=== PATIENT | male | born 1950 | race Caucasian/White ===

== ENCOUNTER 2017-07-30 07:41 | Day surgery (SDC) | payer MEDICARE ==
[2017-04-15 13:32] VITALS: BMI 24.3
[2017-07-30] MEDS ORDERED: Lactated Ringer's 1,000 ML IV ONE (08:06)
[2017-07-30 08:41] VITALS: O2SAT 99
[2017-07-30] MEDS ORDERED: Propofol 10 mg/ml Inj (20 ML) ONE (09:28)
[2017-07-30] MEDS ORDERED: Lidocaine 2% MPF (5 ml) Inj ONE (09:28)
[2017-07-30] MEDS ORDERED: Glucagon Recombinant 1 mg Inj ONE (10:20)
[2017-07-30 10:44] VITALS: TEMP 97
[2017-07-30 12:11] VITALS: BP 129/76; PULSE 81; RESP 15
== END 2017-07-30 11:03 | disposition home or self-care (01) ==
LOC: H.ENDO 07:41
PROVIDERS: ATTEND Internal Medicine Gastroenterology
DX: R10.13 Epigastric pain (principal); K63.5 Polyp of colon; Z87.19 Personal history of other diseases of the digestive system; D12.0 Benign neoplasm of cecum; K64.2 Third degree hemorrhoids; K55.20 Angiodysplasia of colon without hemorrhage; K44.9 Diaphragmatic hernia without obstruction or gangrene; K31.9 Disease of stomach and duodenum, unspecified; K31.819 Angiodysplasia of stomach and duodenum without bleeding; K29.70 Gastritis, unspecified, without bleeding
CPT/HCPCS: 43239; 45385; 82948; 88305; J1610; J2704; J3010; J7120